=== PATIENT | male | born 1955 | race Caucasian/White ===

== ENCOUNTER → 2022-03-01 | Day surgery (SDC) | payer MEDICARE, OTHER ==
[~2022-03-01] VITALS: Ht 170.2 cm; Wt 79.4 kg
[~2022-03-01] MED LIST: PANTOPRAZOLE SO40 MG PO; ULTRAM50 MG PO
== END | disposition home or self-care (01) ==
LOC: FAS 07:30
DX: C15.9 Malignant neoplasm of esophagus, unspecified (principal); K21.9 Gastro-esophageal reflux disease without esophagitis; N42.9 Disorder of prostate, unspecified; Z87.891 Personal history of nicotine dependence; Z72.89 Other problems related to lifestyle; Z96.89 Presence of other specified functional implants
CPT/HCPCS: 71045; 76000; C1788; J0690; J1644; J2001; J2250; J2704; J3010; J7120